=== PATIENT | female | born 1990 | race Caucasian/White ===

== ENCOUNTER 2021-03-13 13:44 | Emergency (ER) | payer OTHER ==
[~2021-03-13] VITALS: Ht 162.6 cm; Wt 67.9 kg
--- NOTE | 2021-03-13 14:19 | PHYS DOC ---
Past History Past Surgical History: Other Additional Past Surgical Histo: IVF Alcohol Use: Occasionally Adult General Chief Complaint Chief Complaint: ABDOMINAL PAIN HPI HPI Patient is a 30-year-old female presenting for abdominal/flank pain. Reports onset was yesterday without any known inciting event, trauma, ingestion, allergen or mechanism of injury. Nothing known makes better or worse. Patient reports that pain is right-sided in her flank and often radiates down to her pubic region. She has history of kidney stones in the past and is here away from and concerned she might be passing another 1. She is here temporarily for work and not established with a primary care physician and so, she arrived to ER for evaluation. Denies any other pertinent medical issues and takes no other medications on a daily basis Review of Systems Review of Systems Fourteen body systems of review of systems have been reviewed. See HPI for pertinent positives and negative responses, other galvez all other systems are negative, non-pertinent or non-contributory Allergies Allergies Allergies Coded Allergies Type Severity Reaction Last Updated Verified No Known Drug Allergies 03/13/21 No Physical Exam Physical Exam Constitutional: Well developed, well nourished, no acute distress, non-toxic appearance. HENT: Normocephalic, atraumatic, bilateral external ears normal, oropharynx moist, no oral exudates, nose normal. Eyes: PERRLA, EOMI, conjunctiva normal, no discharge. Neck: Normal range of motion, no tenderness, supple, no stridor. Cardiovascular: Heart rate regular, sinus rhythm, no murmurs rubs or gallops Lungs & Thorax: Bilateral breath sounds clear to auscultation Abdomen: Bowel sounds normal, soft, no tenderness, no masses, no pulsatile masses. Nonsurgical abdomen, no peritoneal signs Skin: Warm, dry, no erythema, no rash. Back: No tenderness, right CVA tenderness. Extremities: No tenderness, no cyanosis, no clubbing, ROM intact, no edema. Neurologic: Alert and oriented X 3, grossly normal motor & sensory function, no focal deficits noted. Psychologic: Affect normal, judgement normal, mood normal. Current Patient Data Vital Signs Vital Signs Date Time Temp Pulse Resp B/P (MAP) Pulse Ox O2 Delivery O2 Flow Rate FiO2 03/13/21 13:56 97.6 69 18 119/67 (84) 98 Room Air Lab Results Current Medications Medications (Trade) Dose Ordered Sig/Beverly Route PRN Reason Start Time Stop Time Status Last Admin Dose Admin Sodium Chloride 1,000 ml @ 1,000 mls/hr 1X ONCE IV 03/13/21 14:30 03/13/21 15:29 DC 03/13/21 15:09 Ondansetron HCl (Zofran) 4 mg 1X ONCE IVP 03/13/21 14:30 03/13/21 14:38 DC 03/13/21 15:10 EKG EKG [] Radiology/Procedures Radiology/Procedures Examination: CT of the abdomen pelvis without contrast HISTORY: History of right flank pain COMPARISON: None available Technique: Axial CT images of abdomen is performed without contrast. Coronal and sagittal reformats are performed Exposure: One or more of the following individualized dose reduction techniques were utilized for this examination: 1. Automated exposure control 2. Adjustment of the mA and/or kV according to patient size 3. Use of iterative reconstruction technique FINDINGS: The bibasilar lungs are clear. No evidence of free air identified in the abdomen. The evaluation of the solid organs is limited due to lack of IV contrast. The e valuation of bowel is limited due to lack of oral contrast. The visualized noncontrasted liver, spleen, adrenals grossly appears unremarkable. The gallbladder is mildly distended. Stomach is mildly distended. The visualized pancreas grossly appears unrema rkable. Few fluid distended small bowel loops right mid abdomen. The appendix is normal. Feces and gas noted in the colon. Punctate 1 mm calculus right kidney.. Urinary bladder is mildly distended. No evidence of lytic bony destructive lesion. IMPRESSION: 1. Few fluid distended small bowel loops in the right mid abdomen, nonspecific could be mild enteritis.. 2. Punctate 1 mm calculus right kidney. Electronically signed by: Sacha Mayo MD (03/13/2021 2:48 PM) [id number] Heart Score C/O Chest Pain: No Risk Factors: Risk Factors: DM, Current or recent (<one month) smoker, HTN, HLP, family history of CAD, obesity. Risk Scores: Risk Factors: DM, Current or recent (<one month) smoker, HTN, HLP, family history of CAD, obesity. Course & Med Decision Making Course & Med Decision Making ABCs unremarkable HPI physical exam and comprehensive ER work-up nonconcerning for any emergent or surgical issues I disclosed entirety of findings with patient concerning for right-sided 1 mm kidney stone and findings indicative of enteritis Joint decision made to discharge home with continued supportive care practices and close PCP follow-up in area and/or return to ER if symptoms worsen with expectant management recommended Maryam Disclaimer Maryam Disclaimer This electronic medical record was generated, in whole or in part, using a voice recognition dictation system. Departure Departure: Impression: Primary Impression: Abdominal pain Additional Impression: Right kidney stone Disposition: HOME / SELF CARE / HOMELESS Condition: STABLE Referrals: PCP,UNKNOWN (PCP) Additional Instructions: As disclosed prior to ER departure, your vitals, physical exam and comprehensive ER work-up were nonconcerning for any emergent or surgical issues. Your labs were unremarkable and based on CT imaging of your abdomen and pelvis, there were findings consistent with mild enteritis and a right-sided 1 mm kidney stone. Continued supportive care and close outpatient follow-up with primary care physician is advised. Continued use of ibuprofen and/or Tylenol for pain control in addition to straining urine is recommended. If any concerning signs or symptoms present prior to outpatient follow-up please do not hesitate to come back for repeat evaluation. It was a pleasure to take care of you and I wish you the best going forward Problem Qualifiers HERNANDEZ DAHL DO Mar 13, 2021 14:19
[2021-03-13] MEDS ORDERED: IV NORMAL SALINE 1,000ML 1,000 ML IV ONE (14:30)
[2021-03-13] MEDS ORDERED: ONDANSETRON PF 4 MG/2 ML VIAL. IVP ONE (14:30)
--- NOTE | 2021-03-13 14:50 | RAD ---
Examination: CT of the abdomen pelvis without contrast HISTORY: History of right flank pain COMPARISON: None available Technique: Axial CT images of abdomen is performed without contrast. Coronal and sagittal reformats a re performed Exposure: One or more of the following individualized dose reduction techniques were utilized for thi s examination: 1. Automated exposure control 2. Adjustment of the mA and/or kV according to patient size 3. Use of iterative reconstruction technique FINDINGS: The bibasilar lungs are clear. No evidence of free air identified in the abdomen. The evaluation of the solid organs is limited due to lack of IV contrast. The evaluation of bowel is limited due to lack of oral contrast. The visualized noncontrasted liver, spleen, adrenals grossly ap pears unremarkable. The gallbladder is mildly distended. Stomach is mildly distended. The visualized pancreas grossly appears unremarkable. Few fluid distende d small bowel loops right mid abdomen. The appendix is normal. Feces and gas noted in the colon. Punc perez 1 mm calculus right kidney.. Urinary bladder is mildly distended. No evidence of lytic bony destructive lesion. IMPRESSION: 1. Few fluid distended small bowel loops in the right mid abdomen, nonspecific could be mild enterit is.. 2. Punctate 1 mm calculus right kidney. Electronically signed by: Sacha Mayo MD (03/13/2021 2:48 PM) [id number]
[2021-03-13 15:31] LABS: BASO % 1 % (0-3); EOS # 0.1 x10^3/uL (0.0-0.7); EOS % 1 % (0-3); HEMATOCRIT 39.7 % (36.0-47.0); HEMOGLOBIN 14.1 g/dL (12.0-15.5); LYMPH # 2.7 x10^3/uL (1.0-4.8); LYMPH % 44 % (24-48); MEAN CORPUSCULAR HEMOGLOBIN 31 pg (25-35); MEAN CORPUSCULAR HGB CONC 36 g/dL (31-37); MEAN CORPUSCULAR VOLUME 87 fL (79-100); MONO # 0.3 x10^3/uL (0.0-1.1); MONO % 6 % (0-9); NEUT % 49 % (31-73); PLATELET COUNT 193 x10^3/uL (140-400); RED BLOOD COUNT 4.59 x10^6/uL (3.50-5.40); RED CELL DISTRIBUTION WIDTH 12.3 % (11.5-14.5); WHITE BLOOD COUNT 6.2 x10^3/uL (4.0-11.0)
[2021-03-13 15:45] LABS: CALCIUM 8.9 mg/dL (8.5-10.1); CREATININE 0.8 mg/dL (0.6-1.0); GFR 84.2
[2021-03-13 16:12] VITALS: BP 120/70
[2021-03-13 16:20] LABS: BACTERIA,URINE FEW /HPF (0-FEW); BILIRUBIN,URINE NEG (NEG); CLARITY,URINE CLEAR; COLOR,URINE YELLOW; GLUCOSE,URINE NEG (NEG); NITRITE,URINE NEG (NEG); RBC,URINE OCC /HPF (0-2); SQUAMOUS EPITHELIAL CELL,UR FEW /LPF; UROBILINOGEN,URINE 0.2 mg/dL (0.2 mg/dL); WBC,URINE OCC /HPF (0-4)
== END 2021-03-13 16:12 | disposition home or self-care (01) ==
LOC: ER 13:44
DX: N20.0 Calculus of kidney (principal)
CPT/HCPCS: 36415; 74176; 80048; 81001; 81025; 85025; 96361; 96374; 99284; J2405; J7030